=== PATIENT | male | born 1960 | race Caucasian/White ===

== ENCOUNTER 2024-10-07 21:17 | Emergency (ER) | payer OTHER ==
[~2024-10-07] VITALS: Ht 177.8 cm; Wt 260.0 kg
[2024-10-07] MEDS ORDERED: ATOR1TAB19 PO (21:50)
[2024-10-07 21:55] LABS: BASO # 0.1 10^3/uL (0.0-0.2); BASO % 0.6 % (0.0-1.0); EOS # 0.1 10^3/uL (0.0-0.5); EOS % 1.1 % (0.0-3.0); HEMATOCRIT 42.2 % (42.0-52.0); HEMOGLOBIN 14.5 g/dl (13.5-17.5); LYMPH # 1.7 10^3/uL (1.5-5.0); MEAN CORPUSCULAR HEMOGLOBIN 30.4 pg (27.0-33.0); MEAN CORPUSCULAR HGB CONC 34.4 g/dl (32.0-36.5); MEAN CORPUSCULAR VOLUME 88.5 fl (80.0-96.0); MONO # 0.5 10^3/uL (0.0-0.8); MONO % 5.2 % (2.0-8.0); NEUTROPHILS # 6.6 10^3/uL (1.5-8.5); NEUTROPHILS % 73.3 % (36.0-66.0); PLATELET COUNT, AUTOMATED 203 10^3/uL (150-450); RED BLOOD COUNT 4.77 10^6/uL (4.30-6.10)
[2024-10-07 22:22] LABS: ALBUMIN 4.2 G/DL (3.2-5.2); BILIRUBIN,DIRECT 0.6 MG/DL (<0.4); BILIRUBIN,TOTAL 1.2 MG/DL (0.3-1.2); CALCIUM LEVEL 9.8 MG/DL (8.3-10.6); CK-MB VALUE MASS 1.7 NG/ML (<3.6); CREATININE FOR GFR 1.35 MG/DL (0.70-1.30); POTASSIUM SERUM 4.1 MMOL/L (3.5-5.1); TOTAL PROTEIN 7.6 G/DL (5.7-8.2)
[2024-10-07 22:25] LABS: MB/CK RELATIVE INDEX 1.13 (< OR =4)
[2024-10-07] MEDS: KETOROLAC 30 MG/ML 1ML VIAL IV ONE (23:05)
[2024-10-07] MEDS ORDERED: MORPHINE 4 MG/ML 1ML VIAL IV PRN (23:20)
[2024-10-07] MEDS ORDERED: ISOVUE-370 76% 100ML VIAL As Ordered ONE (23:32)
[2024-10-07] MEDS: ONDANSETRON 4MG 2ML VIAL IV ONE (23:51)
[2024-10-08] MEDS: MORPHINE 2 MG/ML 1ML VIAL IV PRN (00:24)
[2024-10-08] MEDS: METOCLOPRAMIDE INJ 10MG/2ML VIAL IV ONE (01:27)
[2024-10-08] MEDS: diphenhydrAMINE 50MG/ML VIAL IV STA (01:27)
[2024-10-08] MEDS: NS (Normal Saline) 0.9% 1,000 ML IV ONE (02:45)
[2024-10-08] MEDS: ERTAPENEM SODIUM 1 GM in NS MINI-BAG PLUS 50 ML IV ONE (02:51)
[2024-10-08 04:45] VITALS: BP 141/73; O2SAT 97
[2024-10-08 04:47] VITALS: TEMP 98.7
[2024-10-08] MEDS: MORPHINE 4 MG/ML 1ML VIAL IV ONE (04:50)
== END 2024-10-08 04:53 | disposition short-term general hospital (02) ==
LOC: M ED 21:17
DX: K80.50 Calculus of bile duct without cholangitis or cholecystitis without obstruction (principal); K85.90 Acute pancreatitis without necrosis or infection, unspecified; R00.1 Bradycardia, unspecified; I45.19 Other right bundle-branch block; K21.9 Gastro-esophageal reflux disease without esophagitis; Z88.0 Allergy status to penicillin; Z88.5 Allergy status to narcotic agent; Z79.899 Other long term (current) drug therapy
CPT/HCPCS: 71045; 74177; 80048; 80076; 82550; 82553; 83690; 84484; 85025; 87486; 87581; 87633; 87798; 93005; 96374; 96375; 96376; 99285; J1200; J1335; J1885; J2405; J2765; Q9967